=== PATIENT | male | born 1955 | race Caucasian/White ===

== ENCOUNTER 2022-06-18 13:37 | Emergency (ER) | payer MEDICARE, OTHER ==
[2022-06-18] MEDS ORDERED: Acetaminophen 500 MG Tab PO ONE (14:32)
[2022-06-18] MEDS ORDERED: Cyclobenzaprine 10 MG Tab PO SCH ×2 (15:12→18:00)
[2022-06-18] MEDS ORDERED: Cyclobenzaprine 10 MG Tab ONE (15:13)
== END 2022-06-18 15:28 | disposition home or self-care (01) ==
LOC: LL.ED 13:37
DX: M94.0 Chondrocostal junction syndrome [Tietze] (principal); I48.91 Unspecified atrial fibrillation; I10 Essential (primary) hypertension; M10.9 Gout, unspecified; Z72.0 Tobacco use; Z79.899 Other long term (current) drug therapy
CPT/HCPCS: 71101-LT; 99284; A9270-GY